=== PATIENT | male | born 1945 | race Caucasian/White ===

== ENCOUNTER 2017-09-28 07:45 | Emergency (ER) | payer OTHER, BC ==
[~2017-09-28] VITALS: Ht 177.8 cm; Wt 79.5 kg
[2017-09-28 08:36] LABS: HEMATOCRIT 43.7 % (38.0-50.0); HEMOGLOBIN 15.1 G/DL (12.5-16.6); MCH 32.8 PG (29.0-34.0); MCHC 34.6 G/DL (30.0-36.0); PLATELET COUNT 203 K/uL (156-360); RBC DIS.WIDTH-CV 13.6 % (11.8-14.6); RBC DIS.WIDTH-SD 47.6 % (39-53); WHITE BLOOD COUNT 16.8 K/uL (4.1-10.2)
[2017-09-28 09:25] LABS: CHLORIDE 105 mEq/L (99-109); POTASSIUM 3.9 mEq/L (3.7-5.4); SODIUM 140 mEq/L (136-147)
[2017-09-28 09:27] LABS: GLUCOSE 173 mg/dL (70-99); TOTAL PROTEIN 7.4 g/dL (6.4-8.3)
[2017-09-28 09:29] LABS: TOTAL BILIRUBIN 0.6 mg/dL (0.0-1.0)
[2017-09-28 09:31] LABS: ALKALINE PHOSPHATASE 77 IU/L (3-129); CREATININE 1.6 mg/dL (0.6-1.3); GFR ESTIMATE (CALCULATED) 46 mL/min/ (58.99-99999)
[2017-09-28 09:32] LABS: UREA NITROGEN (BUN) 19 mg/dL (9-23)
[2017-09-28 09:33] LABS: AST (GOT) 20 IU/L (2-34)
[2017-09-28 09:34] LABS: ALT (GPT) 15 IU/L (3-49)
[2017-09-28 09:40] LABS: TROP-I INTERPRETATION NEGATIVE; TROPONIN-I < 0.01 ng/mL (0.0-0.30)
[2017-09-28 09:57] LABS: APPEARANCE CLEAR ((CLEAR)); BILIRUBIN NEGATIVE; BLOOD SMALL; COLOR YELLOW ((YELLOW)); GLUCOSE (STRIP) NEGATIVE; KETONES 5; LEUKOCYTES NEGATIVE; NITRITE NEGATIVE; PROTEIN (STRIP) NEGATIVE; SPECIFIC GRAVITY 1.034 (1.000-1.030); UROBILINOGEN 0.2 MG/DL (0.2-1.0)
[2017-09-28 10:00] LABS: BACTERIA NONE SEEN /HPF; EPITHELIAL CELLS RARE /HPF; MUCUS TRACE /LPF; UCUL ADDED? NO; WHITE BLOOD CELLS 0-5 /HPF (0-5)
[2017-09-28 10:17] LABS: ALBUMIN 4.1 G/DL (3.2-4.8)
[2017-09-28] MEDS ORDERED: FLOMAX0.4 MG PO (11:11)
[2017-09-28] MEDS ORDERED: ZOFRAN4 MG PO (11:11)
[2017-09-28] MEDS ORDERED: MOTRIN800 MG PO (11:11)
[2017-09-28 11:19] VITALS: BP 152/86
== END 2017-09-28 11:20 | disposition home or self-care (01) ==
LOC: EME 07:45
PROVIDERS: Nurse Practitioner Family
DX: N13.2 Hydronephrosis with renal and ureteral calculous obstruction (principal); R11.2 Nausea with vomiting, unspecified; K76.89 Other specified diseases of liver; D72.829 Elevated white blood cell count, unspecified; R00.1 Bradycardia, unspecified; I25.10 Atherosclerotic heart disease of native coronary artery without angina pectoris; Z87.891 Personal history of nicotine dependence
CPT/HCPCS: 71045; 74177; 80047; 80053; 81003; 83605; 84484; 85027; 87040; 93005; 99281; 99285; J1885; J2405; J3010; J7120